=== PATIENT | male | born 1965 | race Caucasian/White ===

== ENCOUNTER 2019-02-28 19:29 | Emergency (ER) | payer OTHER | END 2019-02-28 23:05 | disposition home or self-care (01) | LOC: JER 19:29 ==

== ENCOUNTER 2021-01-30 17:00 | Inpatient (IN) | payer OTHER ==
[2021-01-30 18:41] LABS: BASO % 1.5 % (0-2.0); EOS % 7.4 % (0-4.5); HEMATOCRIT 20.9 % (35.4-49); LYMPH % 19.3 % (8-40); MCH 30.3 pg (25.7-33.7); MCHC 33.7 g/dl (32.0-35.9); MEAN CELL VOLUME 89.9 fl (80-96); MEAN PLT VOLUME 8.9 fl (7.5-11.1); MONO % 6.1 % (3.8-10.2); NEUT % 65.7 % (42.8-82.8); PLATELET COUNT 233 10^3/uL (134-434); RBC 2.32 M/mm3 (4.00-5.60); RDW 13.4 % (11.9-15.9); WHITE BLOOD COUNT 6.9 K/mm3 (4.0-10.0)
[2021-01-30 18:45] LABS: EPI CELLS 3 /uL (0-25.1); HYALINE CASTS 0 /uL (0-3.1); PH,URINE 5.5 (5.0-8.0); URINE APPEARANCE CLEAR; URINE BACTERIA 2 /uL (0-1359); URINE BILIRUBIN NEGATIVE (NEGATIVE); URINE COLOR YELLOW; URINE GLUCOSE (UA) TRACE (NEGATIVE); URINE KETONE NEGATIVE (NEGATIVE); URINE LEUK ESTERASE NEGATIVE (NEGATIVE); URINE NITRITE NEGATIVE (NEGATIVE); URINE PROTEIN 3+ (NEGATIVE); URINE RBC 12 /uL (0-23.9); URINE UROBILINOGEN 0.2 mg/dL (0.2-1.0); URINE WBC 3 /uL (0-25.8)
[2021-01-30 18:50] LABS: INR 0.95 (0.83-1.09); PROTHROMBIN TIME (PATIENT) 11.5 SEC (9.7-13.0)
[2021-01-30 18:52] LABS: ACTIVATED PTT 32.4 SECONDS (25.2-36.5)
[2021-01-30 18:56] LABS: CHLORIDE 111 mmol/L (98-107); SODIUM 139 mmol/L (136-145)
[2021-01-30 18:59] LABS: CALCIUM 7.7 mg/dL (8.5-10.1)
[2021-01-30 19:00] LABS: ALBUMIN 3.1 g/dl (3.4-5.0); ANION GAP 13 MMOL/L (8-16); CO2 15 mmol/L (21-32); GLUCOSE,RANDOM 112 mg/dL (74-106); MAGNESIUM 2.1 mg/dL (1.8-2.4)
[2021-01-30 19:03] LABS: SGOT/AST 25 U/L (15-37); SGPT/ALT 47 U/L (13-61)
[2021-01-30 19:05] LABS: BILIRUBIN,TOTAL 0.4 mg/dL (0.2-1); TOT PROT 6.4 g/dl (6.4-8.2)
[2021-01-30 19:06] LABS: ALK PHOS 122 U/L (45-117)
[2021-01-30 19:11] LABS: BLOOD UREA NITROGEN 108.4 mg/dL (7-18)
[2021-01-30] MEDS ORDERED: D5-1/2NS+40 MEQ KCL - 40 MEQ/1,000 ML INFUS.BAG IV SCH (20:30)
[2021-01-31] MEDS: SODIUM CHLORIDE 0.45% 1,000 ML IV SCH ×2 (03:30→21:28)
[2021-01-31] MEDS ORDERED: NIFEdipine E.R 60 MG TABLET PO STA (04:17)
[2021-01-31 07:52] LABS: HEMATOCRIT 22.5 % (35.4-49); HEMOGLOBIN 7.4 GM/dL (11.7-16.9); MCH 30.1 pg (25.7-33.7); MCHC 32.9 g/dl (32.0-35.9); MEAN CELL VOLUME 91.5 fl (80-96); MEAN PLT VOLUME 9.1 fl (7.5-11.1); PLATELET COUNT 226 10^3/uL (134-434); RBC 2.45 M/mm3 (4.00-5.60); RDW 13.4 % (11.9-15.9); WHITE BLOOD COUNT 7.6 K/mm3 (4.0-10.0)
[2021-01-31 07:55] LABS: BLOOD UREA NITROGEN 99.6 mg/dL (7-18); CALCIUM 7.5 mg/dL (8.5-10.1)
[2021-01-31 07:56] LABS: ALBUMIN 2.7 g/dl (3.4-5.0)
[2021-01-31 07:59] LABS: CREATININE 7.1 mg/dL (0.55-1.3)
[2021-01-31 08:00] LABS: TOT PROT 5.8 g/dl (6.4-8.2)
[2021-01-31 08:01] LABS: BILIRUBIN,TOTAL 0.4 mg/dL (0.2-1)
[2021-01-31] MEDS: metoPROLOL SUCCINATE 25 MG TAB.SR.24H (FP) PO SCH (09:49)
[2021-01-31] MEDS: SODIUM BICARBONATE 650 MG TABLET PO SCH ×2 (09:49→21:29)
[2021-01-31] MEDS: NIFEdipine E.R 60 MG TABLET PO SCH ×2 (09:49→11:58)
[2021-01-31] MEDS: DEXTROSE 5%-0.45% SALINE 1,000 ML IV SCH (09:49)
[2021-01-31] MEDS: INSULIN SLIDING SCALE (NOVOLOG) 1 VIAL SQ SCH ×3 (11:52→21:30)
[2021-01-31 20:27] LABS: HEMATOCRIT 23.9 % (35.4-49); HEMOGLOBIN 8.3 GM/dL (11.7-16.9); MCH 30.8 pg (25.7-33.7); MCHC 34.5 g/dl (32.0-35.9); MEAN CELL VOLUME 89.3 fl (80-96); MEAN PLT VOLUME 8.2 fl (7.5-11.1); PLATELET COUNT 216 10^3/uL (134-434); RBC 2.68 M/mm3 (4.00-5.60); RDW 13.3 % (11.9-15.9); WHITE BLOOD COUNT 8.1 K/mm3 (4.0-10.0)
[2021-01-31] MEDS: INSULIN (LEVEMIR) 100 UNITS/ML UNITS SQ SCH (21:28)
[2021-01-31] MEDS: ATORVASTATIN CA 20 MG TABLET (FP) PO SCH (21:29)
[2021-02-01 03:54] LABS: GLUCOSE,RANDOM 49 mg/dL (74-106)
[2021-02-01] MEDS: INSULIN SLIDING SCALE (NOVOLOG) 1 VIAL SQ SCH ×4 (06:02→21:52)
[2021-02-01 08:16] LABS: BASO % 1.8 % (0-2.0); EOS % 7.4 % (0-4.5); HEMATOCRIT 21.8 % (35.4-49); HEMOGLOBIN 7.6 GM/dL (11.7-16.9); LYMPH % 14.8 % (8-40); MCH 30.9 pg (25.7-33.7); MCHC 34.7 g/dl (32.0-35.9); MEAN PLT VOLUME 8.7 fl (7.5-11.1); MONO % 5.9 % (3.8-10.2); NEUT % 70.1 % (42.8-82.8); PLATELET COUNT 201 10^3/uL (134-434); RBC 2.45 M/mm3 (4.00-5.60); RDW 13.5 % (11.9-15.9); WHITE BLOOD COUNT 7.4 K/mm3 (4.0-10.0)
[2021-02-01 08:36] LABS: CHLORIDE 113 mmol/L (98-107); SODIUM 140 mmol/L (136-145)
[2021-02-01 08:43] LABS: SGOT/AST 13 U/L (15-37); SGPT/ALT 31 U/L (13-61)
[2021-02-01 08:44] LABS: ALBUMIN 2.4 g/dl (3.4-5.0); ANION GAP 11 MMOL/L (8-16); BLOOD UREA NITROGEN 95.6 mg/dL (7-18); CO2 15 mmol/L (21-32); GLUCOSE,RANDOM 129 mg/dL (74-106)
[2021-02-01 08:45] LABS: TOT PROT 5.4 g/dl (6.4-8.2)
[2021-02-01 08:46] LABS: ALK PHOS 119 U/L (45-117)
[2021-02-01 08:47] LABS: CREATININE 6.9 mg/dL (0.55-1.3)
[2021-02-01 08:50] LABS: BILIRUBIN,TOTAL 0.3 mg/dL (0.2-1)
[2021-02-01 08:55] LABS: IRON SERUM 43 ug/dL (50-175)
[2021-02-01] MEDS: DEXTROSE 5%-0.45% SALINE 1,000 ML IV SCH ×2 (09:00→21:52)
[2021-02-01 09:01] LABS: TOTAL IRON BINDING CAPACITY 276 ug/dL (250-450)
[2021-02-01 09:18] LABS: CALCIUM 6.9 mg/dL (8.5-10.1)
[2021-02-01] MEDS: metoPROLOL SUCCINATE 25 MG TAB.SR.24H (FP) PO SCH (09:44)
[2021-02-01] MEDS: SODIUM BICARBONATE 650 MG TABLET PO SCH ×2 (09:44→21:47)
[2021-02-01] MEDS: NIFEdipine E.R 60 MG TABLET PO SCH (09:45)
[2021-02-01] MEDS ORDERED: IRON SUCROSE INJECTION 200 MG in SODIUM CHLORIDE 90 ML IVPB ONE (14:30)
[2021-02-01 16:08] LABS: HEP B CORE AB, TOT Negative (Negative)
[2021-02-01] MEDS: SODIUM ZIRCONIUM CYCLOSILICATE (LOKELMA) 5 GM PACKET PO SCH (17:11)
[2021-02-01] MEDS: ATORVASTATIN CA 20 MG TABLET (FP) PO SCH (21:47)
[2021-02-01] MEDS: SODIUM CHLORIDE 0.45% 1,000 ML IV SCH (21:47)
[2021-02-01] MEDS: INSULIN (LEVEMIR) 100 UNITS/ML UNITS SQ SCH (21:52)
[2021-02-02] MEDS: SODIUM BICARBONATE 650 MG TABLET PO SCH ×3 (07:26→23:24)
[2021-02-02] MEDS: metoPROLOL SUCCINATE 25 MG TAB.SR.24H (FP) PO SCH ×2 (07:27→09:14)
[2021-02-02] MEDS: NIFEdipine E.R 60 MG TABLET PO SCH ×2 (07:27→09:13)
[2021-02-02] MEDS: INSULIN SLIDING SCALE (NOVOLOG) 1 VIAL SQ SCH ×4 (07:29→23:24)
[2021-02-02 07:58] LABS: BASO % 1.5 % (0-2.0); EOS % 9.3 % (0-4.5); HEMATOCRIT 23.6 % (35.4-49); LYMPH % 16.7 % (8-40); MCH 30.3 pg (25.7-33.7); MCHC 33.8 g/dl (32.0-35.9); MEAN CELL VOLUME 89.7 fl (80-96); MEAN PLT VOLUME 8.6 fl (7.5-11.1); MONO % 8.4 % (3.8-10.2); NEUT % 64.1 % (42.8-82.8); PLATELET COUNT 216 10^3/uL (134-434); RBC 2.63 M/mm3 (4.00-5.60); RDW 13.1 % (11.9-15.9); WHITE BLOOD COUNT 6.7 K/mm3 (4.0-10.0)
[2021-02-02 08:31] LABS: CALCIUM 7.3 mg/dL (8.5-10.1)
[2021-02-02 08:32] LABS: ALBUMIN 2.6 g/dl (3.4-5.0); BLOOD UREA NITROGEN 98.2 mg/dL (7-18)
[2021-02-02 08:35] LABS: CREATININE 6.9 mg/dL (0.55-1.3)
[2021-02-02 08:36] LABS: BILIRUBIN,TOTAL 0.4 mg/dL (0.2-1); TOT PROT 5.6 g/dl (6.4-8.2)
[2021-02-02] MEDS: DEXTROSE 5%-0.45% SALINE 1,000 ML IV SCH (09:13)
[2021-02-02] MEDS: SODIUM ZIRCONIUM CYCLOSILICATE (LOKELMA) 5 GM PACKET PO SCH (09:13)
[2021-02-02] MEDS ORDERED: INSULIN (NOVOLOG) ASPART 100 UNITS/ML 10ML VIAL ONE (17:05)
[2021-02-02] MEDS ORDERED: hydrALAZINE HCL 10 MG TABLET PO ONE (18:00)
[2021-02-02] MEDS ORDERED: PT OWN MED DRAWER 7, Y5N ONE (23:00)
[2021-02-02] MEDS: SODIUM CHLORIDE 0.45% 1,000 ML IV SCH (23:11)
[2021-02-02] MEDS: INSULIN (LEVEMIR) 100 UNITS/ML UNITS SQ SCH (23:23)
[2021-02-02] MEDS: ATORVASTATIN CA 20 MG TABLET (FP) PO SCH (23:24)
[2021-02-03] MEDS ORDERED: hydrALAZINE HCL 10 MG TABLET PO STA (00:43)
[2021-02-03] MEDS: SODIUM BICARBONATE 650 MG TABLET PO SCH ×3 (05:37→22:20)
[2021-02-03] MEDS: INSULIN SLIDING SCALE (NOVOLOG) 1 VIAL SQ SCH ×4 (06:06→22:19)
[2021-02-03] MEDS: NIFEdipine E.R 60 MG TABLET PO SCH (09:45)
[2021-02-03] MEDS: hydrALAZINE HCL 10 MG TABLET PO SCH ×2 (09:45→22:20)
[2021-02-03] MEDS: DEXTROSE 5%-0.45% SALINE 1,000 ML IV SCH (09:45)
[2021-02-03] MEDS: SODIUM ZIRCONIUM CYCLOSILICATE (LOKELMA) 5 GM PACKET PO SCH (09:45)
[2021-02-03] MEDS: metoPROLOL SUCCINATE 25 MG TAB.SR.24H (FP) PO SCH (09:46)
[2021-02-03] MEDS ORDERED: IRON SUCROSE INJECTION 200 MG in SODIUM CHLORIDE 90 ML IVPB ONE (12:30)
[2021-02-03] MEDS: FUROSEMIDE 40 MG/4 ML INJECTABLE VIAL IVPUSH SCH (14:52)
[2021-02-03] MEDS: INSULIN (LEVEMIR) 100 UNITS/ML UNITS SQ SCH (22:19)
[2021-02-03] MEDS: ATORVASTATIN CA 20 MG TABLET (FP) PO SCH (22:20)
[2021-02-04] MEDS: INSULIN SLIDING SCALE (NOVOLOG) 1 VIAL SQ SCH ×4 (06:30→21:41)
[2021-02-04 06:51] LABS: BASO % 1.2 % (0-2.0); EOS % 7.1 % (0-4.5); HEMATOCRIT 23.6 % (35.4-49); HEMOGLOBIN 8.2 GM/dL (11.7-16.9); LYMPH % 16.9 % (8-40); MCH 30.8 pg (25.7-33.7); MCHC 34.8 g/dl (32.0-35.9); MEAN CELL VOLUME 88.6 fl (80-96); MEAN PLT VOLUME 7.9 fl (7.5-11.1); MONO % 7.3 % (3.8-10.2); NEUT % 67.5 % (42.8-82.8); PLATELET COUNT 232 10^3/uL (134-434); RBC 2.66 M/mm3 (4.00-5.60); RDW 13.5 % (11.9-15.9); WHITE BLOOD COUNT 8.9 K/mm3 (4.0-10.0)
[2021-02-04] MEDS: SODIUM BICARBONATE 650 MG TABLET PO SCH ×3 (06:57→22:05)
[2021-02-04 07:12] LABS: CALCIUM 7.3 mg/dL (8.5-10.1)
[2021-02-04 07:13] LABS: ALBUMIN 2.3 g/dl (3.4-5.0); BLOOD UREA NITROGEN 101.2 mg/dL (7-18)
[2021-02-04 07:16] LABS: CREATININE 7.3 mg/dL (0.55-1.3)
[2021-02-04 07:17] LABS: BILIRUBIN,TOTAL 0.3 mg/dL (0.2-1)
[2021-02-04] MEDS: FUROSEMIDE 40 MG/4 ML INJECTABLE VIAL IVPUSH SCH (09:50)
[2021-02-04] MEDS: NIFEdipine E.R 60 MG TABLET PO SCH (09:50)
[2021-02-04] MEDS: SODIUM ZIRCONIUM CYCLOSILICATE (LOKELMA) 5 GM PACKET PO SCH (09:51)
[2021-02-04] MEDS: hydrALAZINE HCL 10 MG TABLET PO SCH ×2 (09:51→22:05)
[2021-02-04] MEDS: metoPROLOL SUCCINATE 25 MG TAB.SR.24H (FP) PO SCH (09:51)
[2021-02-04] MEDS: INSULIN (LEVEMIR) 100 UNITS/ML UNITS SQ SCH (22:05)
[2021-02-04] MEDS: ATORVASTATIN CA 20 MG TABLET (FP) PO SCH (22:05)
[2021-02-05] MEDS: SODIUM BICARBONATE 650 MG TABLET PO SCH ×3 (06:28→21:38)
[2021-02-05] MEDS: INSULIN SLIDING SCALE (NOVOLOG) 1 VIAL SQ SCH ×4 (06:28→21:40)
[2021-02-05 07:39] LABS: CHLORIDE 110 mmol/L (98-107); SODIUM 140 mmol/L (136-145)
[2021-02-05 07:51] LABS: ALBUMIN 2.3 g/dl (3.4-5.0); ANION GAP 14 MMOL/L (8-16); CALCIUM 7.3 mg/dL (8.5-10.1); CO2 16 mmol/L (21-32)
[2021-02-05 07:52] LABS: GLUCOSE,RANDOM 86 mg/dL (74-106)
[2021-02-05 07:54] LABS: SGOT/AST 13 U/L (15-37); SGPT/ALT 20 U/L (13-61)
[2021-02-05 07:55] LABS: BILIRUBIN,TOTAL 0.3 mg/dL (0.2-1); TOT PROT 4.9 g/dl (6.4-8.2)
[2021-02-05 07:57] LABS: ALK PHOS 86 U/L (45-117)
[2021-02-05 08:03] LABS: BLOOD UREA NITROGEN 107.7 mg/dL (7-18); CREATININE 7.5 mg/dL (0.55-1.3)
[2021-02-05] MEDS: metoPROLOL SUCCINATE 25 MG TAB.SR.24H (FP) PO SCH (09:12)
[2021-02-05] MEDS: NIFEdipine E.R 60 MG TABLET PO SCH (09:12)
[2021-02-05] MEDS: hydrALAZINE HCL 10 MG TABLET PO SCH (09:12)
[2021-02-05] MEDS ORDERED: IRON SUCROSE INJECTION 200 MG in SODIUM CHLORIDE 90 ML IVPB ONE ×2 (13:00→15:00)
[2021-02-05 15:07] LABS: ANTIGLOMERULAR BASEMENT MEN.AB 2 units (0-20)
[2021-02-05] MEDS: hydrALAZINE HCL 25 MG TABLET (FP) PO SCH ×2 (16:19→21:40)
[2021-02-05] MEDS: ATORVASTATIN CA 20 MG TABLET (FP) PO SCH (21:40)
[2021-02-05] MEDS: INSULIN (LEVEMIR) 100 UNITS/ML UNITS SQ SCH (21:40)
[2021-02-05 21:49] LABS: CHOLESTEROL 130 mg/dL (50-200)
[2021-02-05 21:50] LABS: TRIGLYCERIDES 95 mg/dL (0-150)
[2021-02-05 21:51] LABS: LDL CHOLESTEROL (ONLY SJRH) 77 mg/dL (5-100)
[2021-02-05 21:53] LABS: HDL CHOLESTEROL 40 mg/dL (40-60)
[2021-02-05 21:54] LABS: N-TERMINAL BNP 1254.9 pg/ml (5-125)
[2021-02-06] MEDS: hydrALAZINE HCL 25 MG TABLET (FP) PO SCH ×3 (06:39→21:45)
[2021-02-06] MEDS: SODIUM BICARBONATE 650 MG TABLET PO SCH ×3 (06:39→21:46)
[2021-02-06] MEDS: INSULIN SLIDING SCALE (NOVOLOG) 1 VIAL SQ SCH ×4 (06:39→21:49)
[2021-02-06 07:31] LABS: BASO % 1.3 % (0-2.0); EOS % 8.2 % (0-4.5); HEMATOCRIT 22.6 % (35.4-49); HEMOGLOBIN 7.8 GM/dL (11.7-16.9); LYMPH % 14.6 % (8-40); MCH 30.8 pg (25.7-33.7); MCHC 34.6 g/dl (32.0-35.9); MONO % 6.8 % (3.8-10.2); NEUT % 69.1 % (42.8-82.8); PLATELET COUNT 220 10^3/uL (134-434); RBC 2.54 M/mm3 (4.00-5.60); RDW 13.6 % (11.9-15.9); WHITE BLOOD COUNT 7.7 K/mm3 (4.0-10.0)
[2021-02-06 07:35] LABS: INR 0.91 (0.83-1.09); PROTHROMBIN TIME (PATIENT) 11.1 SEC (9.7-13.0)
[2021-02-06 07:38] LABS: ACTIVATED PTT 32.2 SECONDS (25.2-36.5)
[2021-02-06 07:45] LABS: CHLORIDE 111 mmol/L (98-107); SODIUM 141 mmol/L (136-145)
[2021-02-06 07:50] LABS: ANION GAP 13 MMOL/L (8-16); CALCIUM 7.1 mg/dL (8.5-10.1); CO2 17 mmol/L (21-32)
[2021-02-06 07:52] LABS: ALBUMIN 2.3 g/dl (3.4-5.0)
[2021-02-06 07:53] LABS: GLUCOSE,RANDOM 79 mg/dL (74-106); SGPT/ALT 26 U/L (13-61)
[2021-02-06 07:54] LABS: BILIRUBIN,TOTAL 0.3 mg/dL (0.2-1); SGOT/AST 21 U/L (15-37)
[2021-02-06 07:55] LABS: TOT PROT 4.9 g/dl (6.4-8.2)
[2021-02-06 07:56] LABS: ALK PHOS 92 U/L (45-117)
[2021-02-06 07:59] LABS: CREATININE 7.5 mg/dL (0.55-1.3)
[2021-02-06] MEDS ORDERED: DEXTROSE 50%-WATER 25 GM/50 ML DISP.SYRIN IVPUSH ONE ×2 (08:00→12:30)
[2021-02-06] MEDS ORDERED: DEXTROSE 50%-WATER 25 GM/50 ML DISP.SYRIN ONE (08:00)
[2021-02-06] MEDS ORDERED: DEXTROSE 5%-0.45% SALINE 1,000 ML IV SCH (08:15)
[2021-02-06] MEDS: metoPROLOL SUCCINATE 25 MG TAB.SR.24H (FP) PO SCH ×2 (09:15→15:19)
[2021-02-06] MEDS: NIFEdipine E.R 60 MG TABLET PO SCH (09:15)
[2021-02-06] MEDS ORDERED: DEXTROSE 50%-WATER - 25 GM/50 ML VIAL ONE (12:00)
[2021-02-06] MEDS: DEXTROSE 5%-0.45% SALINE 1,000 ML IV SCH (12:32)
[2021-02-06] MEDS ORDERED: INSULIN (NOVOLOG) ASPART 100 UNITS/ML 10ML VIAL ONE (14:22)
[2021-02-06] MEDS ORDERED: INSULIN (LEVEMIR) 100 UNITS/ML UNITS SQ ONE (14:22)
[2021-02-06] MEDS ORDERED: ONDANSETRON 4 MG/2 ML VIAL ONE (14:58)
[2021-02-06] MEDS ORDERED: ONDANSETRON 4 MG/2 ML VIAL IVPUSH PRN (15:15)
[2021-02-06 16:12] LABS: TOTAL PROTEIN, URINE 613.6 mg/dL (Not Estab.)
[2021-02-06 17:11] LABS: ATYPICAL pANCA <1:20 titer (Neg:<1:20); C-ANCA <1:20 titer (Neg:<1:20)
[2021-02-06] MEDS: ATORVASTATIN CA 20 MG TABLET (FP) PO SCH (21:46)
[2021-02-06] MEDS: INSULIN (LEVEMIR) 100 UNITS/ML UNITS SQ SCH (21:49)
[2021-02-07] MEDS ORDERED: DEXTROSE 50%-WATER - 25 GM/50 ML VIAL IVPUSH ONE (06:03)
[2021-02-07] MEDS ORDERED: DEXTROSE 50%-WATER 25 GM/50 ML DISP.SYRIN ONE (06:09)
[2021-02-07] MEDS: hydrALAZINE HCL 25 MG TABLET (FP) PO SCH ×3 (06:16→21:18)
[2021-02-07] MEDS: SODIUM BICARBONATE 650 MG TABLET PO SCH (06:16)
[2021-02-07] MEDS: INSULIN SLIDING SCALE (NOVOLOG) 1 VIAL SQ SCH ×3 (06:17→21:19)
[2021-02-07] MEDS: DEXTROSE 5%-0.45% SALINE 1,000 ML IV SCH (06:20)
[2021-02-07 07:33] LABS: HEMATOCRIT 22.6 % (35.4-49); HEMOGLOBIN 7.8 GM/dL (11.7-16.9); LYMPH % 17.6 % (8-40); MCH 30.8 pg (25.7-33.7); MCHC 34.6 g/dl (32.0-35.9); MEAN PLT VOLUME 7.8 fl (7.5-11.1); MONO % 7.4 % (3.8-10.2); PLATELET COUNT 225 10^3/uL (134-434); RBC 2.54 M/mm3 (4.00-5.60); RDW 13.2 % (11.9-15.9); WHITE BLOOD COUNT 8.3 K/mm3 (4.0-10.0)
[2021-02-07 07:51] LABS: CHLORIDE 114 mmol/L (98-107); SODIUM 143 mmol/L (136-145)
[2021-02-07 07:59] LABS: ALBUMIN 2.4 g/dl (3.4-5.0); ANION GAP 11 MMOL/L (8-16); BLOOD UREA NITROGEN 95.2 mg/dL (7-18); CALCIUM 7.4 mg/dL (8.5-10.1); CO2 18 mmol/L (21-32)
[2021-02-07 08:01] LABS: SGPT/ALT 30 U/L (13-61)
[2021-02-07 08:02] LABS: SGOT/AST 19 U/L (15-37)
[2021-02-07 08:03] LABS: BILIRUBIN,TOTAL 0.6 mg/dL (0.2-1); TOT PROT 5.2 g/dl (6.4-8.2)
[2021-02-07 08:04] LABS: ALK PHOS 84 U/L (45-117)
[2021-02-07 08:25] LABS: CREATININE 7.4 mg/dL (0.55-1.3); GLUCOSE,RANDOM 44 mg/dL (74-106)
[2021-02-07] MEDS: NIFEdipine E.R 60 MG TABLET PO SCH (09:00)
[2021-02-07] MEDS: metoPROLOL SUCCINATE 25 MG TAB.SR.24H (FP) PO SCH (09:00)
[2021-02-07] MEDS ORDERED: PROPOFOL 20 ML ONE (09:32)
[2021-02-07] MEDS ORDERED: LIDOCAINE HCL 1%, 10 MG/ML (20ML VIAL) ONE (09:33)
[2021-02-07] MEDS ORDERED: ceFAZolin SODIUM 1 GM VIAL IVPB ONE (09:50)
[2021-02-07] MEDS ORDERED: LIDOCAINE HCL 1%, 10 MG/ML (20ML VIAL) NR ONE (09:57)
[2021-02-07] MEDS ORDERED: ONDANSETRON 4 MG/2 ML VIAL IVPUSH PRN ×2 (10:29→10:44)
[2021-02-07] MEDS ORDERED: DEXTROSE 5%-0.45% SALINE 1,000 ML IV SCH (10:44)
[2021-02-07] MEDS ORDERED: SODIUM BICARBONATE 650 MG TABLET PO SCH (14:00)
[2021-02-07] MEDS ORDERED: ACETAMINOPHEN 325 MG TABLET (FP) PO ONE (14:38)
[2021-02-07] MEDS ORDERED: SODIUM CHLORIDE 250 ML IV PRN (14:38)
[2021-02-07] MEDS ORDERED: IRON SUCROSE INJECTION 200 MG in SODIUM CHLORIDE 90 ML IVPB ONE (17:08)
[2021-02-07 21:58] VITALS: BMI 27.2
[2021-02-07] MEDS ORDERED: INSULIN (LEVEMIR) 100 UNITS/ML UNITS SQ SCH (22:00)
[2021-02-07] MEDS ORDERED: ATORVASTATIN CA 20 MG TABLET (FP) PO SCH ×2 (22:00)
[2021-02-08] MEDS: hydrALAZINE HCL 25 MG TABLET (FP) PO SCH ×2 (06:05→15:21)
[2021-02-08] MEDS: INSULIN SLIDING SCALE (NOVOLOG) 1 VIAL SQ SCH ×3 (06:18→18:57)
[2021-02-08] MEDS ORDERED: IRON SUCROSE INJECTION 100 MG in SODIUM CHLORIDE 95 ML IVPB ONE (09:15)
[2021-02-08] MEDS ORDERED: metoPROLOL SUCCINATE 25 MG TAB.SR.24H (FP) PO SCH (10:00)
[2021-02-08] MEDS ORDERED: NIFEdipine E.R 60 MG TABLET PO SCH (10:00)
[2021-02-08 10:20] LABS: BASO % 1.3 % (0-2.0); EOS % 6.4 % (0-4.5); HEMATOCRIT 22.8 % (35.4-49); HEMOGLOBIN 7.6 GM/dL (11.7-16.9); LYMPH % 14.3 % (8-40); MCH 30.1 pg (25.7-33.7); MCHC 33.5 g/dl (32.0-35.9); MEAN CELL VOLUME 89.9 fl (80-96); MONO % 7.7 % (3.8-10.2); NEUT % 70.3 % (42.8-82.8); PLATELET COUNT 215 10^3/uL (134-434); RBC 2.54 M/mm3 (4.00-5.60); RDW 13.3 % (11.9-15.9); WHITE BLOOD COUNT 7.4 K/mm3 (4.0-10.0)
[2021-02-08 10:39] LABS: CALCIUM 7.3 mg/dL (8.5-10.1)
[2021-02-08 10:43] LABS: CREATININE 5.5 mg/dL (0.55-1.3)
[2021-02-08] MEDS ORDERED: SODIUM CHLORIDE 250 ML IV PRN (12:22)
[2021-02-08] MEDS ORDERED: HEPARIN NA (PORCINE) 5,000 UNITS/ML 1ML VIAL IVPUSH ONE (12:30)
[2021-02-08 15:02] VITALS: BP 137/76; PULSE 86; TEMP 97.8
== END 2021-02-08 17:59 | disposition home or self-care (01) | DRG 470 ==
LOC: JER 17:00 → JERBED 20:28 → J4W 01-31 02:52
PROVIDERS: ADMIT Internal Medicine; ATTEND Internal Medicine
PROC: 0TB03ZX Excision of Right Kidney, Percutaneous Approach, Diagnostic (ICD-10-PCS; principal; 2021-02-06)
PROC: 02H633Z Insertion of Infusion Device into Right Atrium, Percutaneous Approach (ICD-10-PCS; 2021-02-07)
PROC: B548ZZA Ultrasonography of Superior Vena Cava, Guidance (ICD-10-PCS; 2021-02-07)
PROC: 5A1D70Z Performance of Urinary Filtration, Intermittent, Less than 6 Hours Per Day (ICD-10-PCS; 2021-02-07)
DX: I12.0 Hypertensive chronic kidney disease with stage 5 chronic kidney disease or end stage renal disease (principal); N17.9 Acute kidney failure, unspecified; N18.6 End stage renal disease; E11.22 Type 2 diabetes mellitus with diabetic chronic kidney disease; K21.9 Gastro-esophageal reflux disease without esophagitis; Z79.4 Long term (current) use of insulin; E87.2 Acidosis; D63.8 Anemia in other chronic diseases classified elsewhere; E11.649 Type 2 diabetes mellitus with hypoglycemia without coma; D50.9 Iron deficiency anemia, unspecified
CPT/HCPCS: 36415; 36430; 50200; 71045-TC-FY; 71046-TC-FY; 76000-TC-FY; 76775-TC; 80048; 80053; 80061; 80076; 81003; 82272; 82436; 82570; 82607; 82728; 82747; 82947; 82962; 83036; 83516; 83520; 83540; 83550; 83721; 83735; 83880; 83883; 84133; 84155; 84156; 84157; 84165; 84300; 84443; 84484; 85014; 85025; 85027; 85610; 85651; 85730; 86038; 86140; 86225; 86256; 86704; 86706; 86707; 86708; 86709; 86803; 86850; 86900; 86901; 86922; 87086; 87340; 87522; 88300-TC; 88329; 93005; 93010; 93306-TC; 94760; 99285-25; C9803; J1644; J1756; P9058; U0003; U0005

== ENCOUNTER 2021-09-07 11:29 | Emergency (ER) | payer OTHER ==
[2021-09-07 11:36] VITALS: BMI 27.4
[2021-09-07] MEDS ORDERED: ACETAMINOPHEN 500 MG TABLET (FP) PO ONE ×2 (12:27→20:17)
[2021-09-07] MEDS ORDERED: ACETAMINOPHEN 325 MG TABLET (FP) ONE ×2 (12:42→20:20)
[2021-09-07 13:16] LABS: CHLORIDE 99 mmol/L (98-107); SODIUM 137 mmol/L (136-145)
[2021-09-07 13:17] LABS: CALCIUM 9.1 mg/dL (8.5-10.1)
[2021-09-07 13:18] LABS: BLOOD UREA NITROGEN 61.7 mg/dL (7-18); CO2 28 mmol/L (21-32); GLUCOSE,RANDOM 216 mg/dL (74-106)
[2021-09-07 13:19] LABS: ANION GAP 10 MMOL/L (8-16); MAGNESIUM 2.4 mg/dL (1.8-2.4)
[2021-09-07 13:21] LABS: HEMATOCRIT 32.1 % (35.4-49); MCH 30.7 pg (25.7-33.7); MCHC 34.5 g/dl (32.0-35.9); MEAN CELL VOLUME 89.2 fl (80-96); MEAN PLT VOLUME 9.1 fl (7.5-11.1); PLATELET COUNT 169 10^3/uL (134-434); WHITE BLOOD COUNT 21.1 K/mm3 (4.0-10.0)
[2021-09-07 13:22] LABS: SGOT/AST 14 U/L (15-37); SGPT/ALT 25 U/L (13-61)
[2021-09-07 13:23] LABS: BILIRUBIN,TOTAL 0.9 mg/dL (0.2-1)
[2021-09-07 13:25] LABS: ALK PHOS 95 U/L (45-117)
[2021-09-07 13:26] LABS: CREATININE 8.1 mg/dL (0.55-1.3)
[2021-09-07 14:23] LABS: EPI CELLS 7 /uL (0-25.1); HYALINE CASTS 1 /uL (0-3.1); PH,URINE 8.5 (5.0-8.0); URINE APPEARANCE CLEAR; URINE BACTERIA 36 /uL (0-1359); URINE BILIRUBIN NEGATIVE (NEGATIVE); URINE COLOR YELLOW; URINE GLUCOSE (UA) 2+ (NEGATIVE); URINE KETONE NEGATIVE (NEGATIVE); URINE LEUK ESTERASE NEGATIVE (NEGATIVE); URINE NITRITE NEGATIVE (NEGATIVE); URINE PROTEIN 4+ (NEGATIVE); URINE RBC 27 /uL (0-23.9); URINE UROBILINOGEN 0.2 mg/dL (0.2-1.0); URINE WBC 11 /uL (0-25.8)
[2021-09-07 14:36] LABS: ANISOCYTOSIS 0; HELMET CELLS 0; HOWELL-JOLLY BODIES 0; MACROCYTOSIS 0; OVALOCYTE 0; PLATELET ESTIMATE NORMAL; ROULEAU 0; SICKELED CELLS 0; TARGET CELLS 0; TEAR DROP CELLS 0; TOXIC GRANULATION 0
[2021-09-07 16:35] LABS: HEMATOCRIT 29.9 % (35.4-49); HEMOGLOBIN 10.2 GM/dL (11.7-16.9); MCH 30.5 pg (25.7-33.7); MCHC 34.1 g/dl (32.0-35.9); MEAN CELL VOLUME 89.4 fl (80-96); MEAN PLT VOLUME 8.4 fl (7.5-11.1); PLATELET COUNT 149 10^3/uL (134-434); RBC 3.34 M/mm3 (4.00-5.60); RDW 14.3 % (11.9-15.9); WHITE BLOOD COUNT 22.5 K/mm3 (4.0-10.0)
[2021-09-07 20:38] VITALS: BP 130/54; PULSE 100; TEMP 100.6
== END 2021-09-07 20:05 | disposition short-term general hospital (02) ==
LOC: JER 11:29
DX: K92.1 Melena (principal); K62.5 Hemorrhage of anus and rectum
CPT/HCPCS: 36415; 71046-TC-FY; 80053; 81003; 82272; 83735; 85025; 85027; 86850; 86900; 86901; 87086; 99284-25; C9803; U0003; U0005